=== PATIENT | female | born 1985 | race Caucasian/White ===

== ENCOUNTER 2017-05-16 10:21 | Emergency (ER) | payer BC | END 2017-05-16 11:52 | disposition home or self-care (01) | LOC: M ED 10:21 | DX: K02.9 Dental caries, unspecified (principal) | CPT/HCPCS: 99283 ==

== ENCOUNTER → 2018-09-03 | Outpatient (REF) | payer OTHER ==
[~2018-09-03] MED LIST: CLEO300C2 PO; HYDR-3715 PO
== END ==
LOC: M LAB REF 16:38
PROVIDERS: ATTEND Physician Assistant
DX: R30.0 Dysuria (principal)

== ENCOUNTER → 2019-03-24 | Outpatient (CLI) | payer MEDICAID ==
[2019-03-24 18:08] LABS: BASO % 0.4 % (0.0-1.0); EOS # 0.1 10^3/uL (0.0-0.5); EOS % 0.7 % (0.0-3.0); HEMATOCRIT 40.8 % (36.0-47.0); HEMOGLOBIN 13.2 g/dl (12.0-15.5); LYMPH # 1.2 10^3/uL (1.5-5.0); LYMPH % 13.6 % (24.0-44.0); MEAN CORPUSCULAR HEMOGLOBIN 29.8 pg (27.0-33.0); MEAN CORPUSCULAR HGB CONC 32.4 g/dl (32.0-36.5); MEAN CORPUSCULAR VOLUME 92.1 fl (80.0-96.0); MONO # 0.6 10^3/uL (0.0-0.8); MONO % 6.2 % (0.0-5.0); NEUTROPHILS # 7.2 10^3/uL (1.5-8.5); NEUTROPHILS % 78.9 % (36.0-66.0); PLATELET COUNT, AUTOMATED 312 10^3/uL (150-450); RED BLOOD COUNT 4.43 10^6/uL (4.00-5.40); WHITE BLOOD COUNT 9.1 10^3/uL (4.0-10.0)
[2019-03-24 18:11] LABS: ALT/SGPT 24 U/L (12-78); BILIRUBIN,TOTAL 0.2 MG/DL (0.2-1.0); CREATININE FOR GFR 0.75 MG/DL (0.55-1.30); GLOMERULAR FILTRATION RATE > 60.0 (>60); LDH LACTATE DEHYDROGENASE 129 U/L (84-246); URIC ACID 3.7 MG/DL (2.6-6.0)
[2019-03-24 18:24] LABS: HEMOGLOBIN A1c 5.3 %
[2019-03-24 18:30] LABS: TOTAL PROTEIN,RANDOM URINE 11.6 MG/DL (0.0-12.0)
[2019-03-24 20:04] LABS: CHLAMYDIA DNA AMPLIFICATION NEGATIVE (NEGATIVE); GC DNA AMPLIFICATION NEGATIVE (NEGATIVE)
[2019-03-25 12:43] LABS: RUBELLA IgG QUALITATIVE IMMUNE (IMMUNE)
[2019-03-25 13:12] LABS: HEPATITIS C VIRUS ABY INDEX 0.1 INDEX (<0.8)
[2019-03-25 13:13] LABS: HIV 1&2 SCREEN CENTAUR NEGATIVE (NEGATIVE)
== END ==
LOC: M PLALAB 10:52
PROVIDERS: ATTEND Advanced Practice Midwife
DX: O36.80X0 Pregnancy with inconclusive fetal viability, not applicable or unspecified (principal)

== ENCOUNTER → 2019-04-01 | Outpatient (CLI) | payer MEDICAID | LOC: M LAB 08:19 | PROVIDERS: ATTEND Advanced Practice Midwife | DX: O99.211 Obesity complicating pregnancy, first trimester (principal); Z3A.00 Weeks of gestation of pregnancy not specified ==

== ENCOUNTER → 2019-06-09 | Outpatient (CLI) | payer OTHER ==
--- NOTE | 2019-06-09 11:52 | REP ---
Obstetric ultrasound for anatomy: There is a single intrauterine gestation in a transverse lie with head to the maternal right. There is movement and cardiac activity. The heart rate is 132 beats per minute. The placenta is anterior and low-lying without evidence of previa. The placenta is grade 1. The amniotic fluid volume subjectively is normal. The cervix measures through 0.6 cm length. Gestational age by today's ultrasound is 19 weeks 2 days/JACINTA 10/1991. weight is 301 grams/0 pounds, 10 ounces. This is the 56th percentile for 19 weeks 2 days. The following anatomic structures are identified and are unremarkable: Cranium, choroid plexus, cavum septum pellucidum, cerebellum, cisterna magna, facial profile, four-chamber heart, cardiac right and left ventricular outflow tracts, diaphragm, stomach, cord insertion, three-vessel cord, kidneys, bladder and upper lower extremities. Suboptimally demonstrated are the upper lip and spine. A followup study dedicated to these structures might be considered. Otherwise, there are no anomalies. Electronically Signed by Abelardo Cardona MD 06/09/2019 11:44 A
== END ==
LOC: M WHC 08:45
PROVIDERS: ATTEND Advanced Practice Midwife
DX: Z34.92 Encounter for supervision of normal pregnancy, unspecified, second trimester (principal)

== ENCOUNTER → 2019-06-24 | Outpatient (REF) | payer OTHER, MEDICAID | LOC: M PLALAB 15:53 | PROVIDERS: ATTEND Obstetrics & Gynecology | DX: Z53.9 Procedure and treatment not carried out, unspecified reason (principal); O24.419 Gestational diabetes mellitus in pregnancy, unspecified control ==

== ENCOUNTER → 2019-07-10 | Outpatient (REF) | payer OTHER, MEDICAID ==
[2019-07-10 14:03] LABS: HEMATOCRIT 35.7 % (36.0-47.0); HEMOGLOBIN 11.8 g/dl (12.0-15.5); MEAN CORPUSCULAR HEMOGLOBIN 30.5 pg (27.0-33.0); MEAN CORPUSCULAR HGB CONC 33.1 g/dl (32.0-36.5); MEAN CORPUSCULAR VOLUME 92.2 fl (80.0-96.0); PLATELET COUNT, AUTOMATED 236 10^3/uL (150-450); RED BLOOD COUNT 3.87 10^6/uL (4.00-5.40); WHITE BLOOD COUNT 8.5 10^3/uL (4.0-10.0)
[2019-07-10 14:21] LABS: HEMOGLOBIN A1c 4.8 %
== END ==
LOC: M PLALAB 09:01
PROVIDERS: ATTEND Obstetrics & Gynecology
DX: O24.419 Gestational diabetes mellitus in pregnancy, unspecified control (principal); Z3A.00 Weeks of gestation of pregnancy not specified

== ENCOUNTER → 2019-07-22 | Outpatient (CLI) | payer OTHER, MEDICAID ==
--- NOTE | 2019-07-22 11:25 | REP ---
OB ULTRASOUND: Real-time sonographic evaluation of the gravid uterus performed using transabdominal and endovaginal technique. There is a single living intrauterine gestation. The estimated gestational age is 25 weeks 3 days based on the first ultrasound, [facility] 11/01/2019. Today's measurements indicate appropriate growth. Biometry and Growth: BPD 68 mm = 27 weeks 2 days, 87th percentile HC 241 mm = 26 weeks 1 day, 66th percentile AC 214 mm = 25 weeks 6 days, 59th percentile FL 49 mm = 26 weeks 2 days, 68th percentile HC/AC ratio 1.13 within normal range of 1.01 to 1.20. Estimated weight 899 grams 62nd percentile. spine is visualized and grossly unremarkable. Other anatomical structures were documented on the prior study. Cervical length: The cervix is closed and measures 4 cm in length. heart rate: 153 beats per minute. position: Vertex. Amniotic fluid within normal limits, JORGE 12.2 within normal range of 9.7 to 22.2. Biophysical profile score: 8/8. Placenta: Anterior and somewhat low lying, the tip of the placenta is 1 cm from the internal cervical os. S/D ratio of the umbilical artery is 2.4.
== END ==
LOC: M WHC 09:25
PROVIDERS: ATTEND Obstetrics & Gynecology
DX: O24.312 Unspecified pre-existing diabetes mellitus in pregnancy, second trimester (principal); Z3A.25 25 weeks gestation of pregnancy

== ENCOUNTER → 2019-08-19 | Outpatient (CLI) | payer OTHER ==
--- NOTE | 2019-08-20 04:07 | REP ---
Clinical: well-being Comparison: 07/22/2019 Findings: Examination demonstrates a single live intrauterine in breech presentation. motion is identified by technologist. Placenta is noted anterior and grade I without evidence for placenta previa or abruption. Amniotic fluid volume is normal. Cervix measures 3.1 cm in length and appears closed. No evidence for nuchal cord. Gestational age by LMP 29 weeks 3 days with JACINTA 11/01/2019 . Gestational age by current measurements 30 weeks 1 day with JACINTA 10/27/2019 . FHR equals 136 beats per minute. Amniotic fluid index: 13.0 cm Biophysical profile score: 8/8 Estimated weight by current biometrical measurements 1563 grams ( 63rd percentile). Impression: Single live intrauterine in breech presentation demonstrating appropriate interval growth. Amniotic fluid volume and biophysical profile score are normal.
== END ==
LOC: M WHC 08:07
PROVIDERS: ATTEND Obstetrics & Gynecology
DX: O24.419 Gestational diabetes mellitus in pregnancy, unspecified control (principal); Z3A.30 30 weeks gestation of pregnancy

== ENCOUNTER → 2019-09-10 | Outpatient (CLI) | payer OTHER ==
--- NOTE | 2019-09-10 19:47 | REP ---
Clinical: Growth evaluation Comparison: 08/19/2019 . Findings: Examination demonstrates a single live intrauterine in breech presentation. motion is identified by technologist. Placenta is noted anterior and grade I I without evidence for placenta previa or abruption. Amniotic fluid volume is normal. Cervix measures 3.0 cm in length and appears closed. No evidence for nuchal cord. Gestational age by LMP 32 weeks 4 days with JACINTA 11/01/2019 . Gestational age by current measurements 33 weeks 2 days with JACINTA 10/27/2019 . FHR equals 139 beats per minute. Estimated weight 2122 grams ( 54th percentile). Amniotic fluid index: 11.7 cm Impression: Single live advanced gestation in breech presentation demonstrating appropriate interval growth.
== END ==
LOC: M WHC 08:09
PROVIDERS: ATTEND Advanced Practice Midwife
DX: O09.523 Supervision of elderly multigravida, third trimester (principal)

== ENCOUNTER → 2019-09-29 | Outpatient (REF) | payer OTHER ==
[~2019-09-29] MED LIST changes: +DOCU100C16 PO; +IBUP80TA PO; +METF500T13 PO; +PERCOCET PO; +PREN1TAB18 PO; +TUMS500C PO
[2019-09-29 18:48] LABS: HEMOGLOBIN A1c 5.2 %
== END ==
LOC: M PLALAB 15:25
PROVIDERS: ATTEND Obstetrics & Gynecology
DX: O24.313 Unspecified pre-existing diabetes mellitus in pregnancy, third trimester (principal)

== ENCOUNTER → 2019-10-01 | Outpatient (CLI) | payer OTHER ==
--- NOTE | 2019-10-01 10:30 | REP ---
OBSTETRIC SONOGRAPHY: HISTORY: Supervision of . Pre-existing diabetes mellitus. growth study, JORGE. FINDINGS: Scanning through the gravid uterus demonstrates a living single intrauterine gestation in a breech lie. motion is observed and heart rate is recorded at 138 beats per minute. An anterior grade 1 placenta is seen without evidence of previa. Amniotic fluid is subjectively normal. Closed cervical length is 3.6 cm measured transabdominally. There has been appropriate interval growth. Biometry Chart: BPD 9.5 cm = 38 weeks 5 days HC 33.2 cm = 37 weeks 6 days AC 31.8 cm = 35 weeks 5 days FL 6.9 cm = 35 weeks 4 days HL 6.4 cm = 36 weeks 6 days HC/AC ratio normal 1.05 Cephalic index normal 0.82. Estimated weight 2881 grams, 6 pounds 5 ounces, 55th percentile for 36 weeks 0 days. JORGE normal 12.3 cm. IMPRESSION: Viable single intrauterine gestation at 36 weeks 3 days by today's composite sonographic criteria for expected gestational age estimate based on prior sonography 35 weeks 4 days. JACINTA by prior sonography November 01, 2019. Appropriate interval growth.
== END ==
LOC: M WHC 08:39
PROVIDERS: ATTEND Obstetrics & Gynecology
DX: O24.313 Unspecified pre-existing diabetes mellitus in pregnancy, third trimester (principal); Z3A.36 36 weeks gestation of pregnancy

== ENCOUNTER → 2019-10-07 | Outpatient (REF) | payer OTHER | LOC: M SFHCWAGY 17:08 | PROVIDERS: ATTEND Specialist | DX: Z34.03 Encounter for supervision of normal first pregnancy, third trimester (principal) ==

== ENCOUNTER → 2019-10-10 | Outpatient (CLI) | payer OTHER | LOC: M LABSMTC 11:39 | PROVIDERS: ATTEND Anesthesiology | DX: Z01.818 Encounter for other preprocedural examination (principal); Z11.59 Encounter for screening for other viral diseases | CPT/HCPCS: C9803; U0003 ==

== ENCOUNTER → 2020-02-19 | Outpatient (CLI) | payer OTHER ==
[2020-02-19 15:22] LABS: BASO # 0.1 10^3/uL (0.0-0.2); BASO % 0.7 % (0.0-1.0); EOS # 0.1 10^3/uL (0.0-0.5); EOS % 0.9 % (0.0-3.0); HEMATOCRIT 38.4 % (36.0-47.0); HEMOGLOBIN 12.2 g/dl (12.0-15.5); LYMPH # 1.7 10^3/uL (1.5-5.0); MEAN CORPUSCULAR HEMOGLOBIN 27.6 pg (27.0-33.0); MEAN CORPUSCULAR HGB CONC 31.8 g/dl (32.0-36.5); MEAN CORPUSCULAR VOLUME 86.9 fl (80.0-96.0); MONO # 0.7 10^3/uL (0.0-0.8); MONO % 9.4 % (0.0-5.0); NEUTROPHILS # 4.4 10^3/uL (1.5-8.5); NEUTROPHILS % 63.7 % (36.0-66.0); PLATELET COUNT, AUTOMATED 308 10^3/uL (150-450); RED BLOOD COUNT 4.42 10^6/uL (4.00-5.40)
[2020-02-19 15:25] LABS: RHEUMATOID FACTOR QUANT < 10.0 IU/ML (<15.0)
[2020-02-19 15:53] LABS: ERYTHROCYTE SEDIMENTATION RATE 34 mm/hr (0-20)
== END ==
LOC: M PLALAB 11:59
PROVIDERS: ATTEND Physician Assistant
DX: M25.562 Pain in left knee (principal)

== ENCOUNTER → 2020-03-03 | Outpatient (CLI) | payer SELFPAY | LOC: M LABSMTC 12:35 | PROVIDERS: ATTEND Pediatrics | DX: Z20.828 Contact with and (suspected) exposure to other viral communicable diseases (principal) ==